=== PATIENT | female | born 1990 | race African-American/Black ===

== ENCOUNTER 2025-05-08 09:47 | Outpatient (REF) | payer OTHER, SELFPAY ==
[2025-05-08 14:44] LABS: Hematocrit 40.8 % (37.0-47.0); Hemoglobin 13.6 g/dl (12.0-16.0); Mean Corpuscular HGB Conc 33.3 g/dl (31.0-35.0); Mean Corpuscular Hemoglobin 29.6 pg (27.0-33.0); Mean Corpuscular Volume 88.7 fL (80.0-98.0); NRBC Abs Auto 0.000 X10*3/uL (0.0-0.012); NRBC Pct Auto 0.0 /100WBC (0.0-0.2); Platelet Count 363 X10*3/uL (160-400); Red Blood Count 4.60 X10*6/uL (4.20-5.50); White Blood Count 6.6 X10*3/uL (4.8-10.8)
[2025-05-08 14:55] LABS: Alanine Aminotransferase 37 U/L (0-31); Albumin Level 4.5 g/dL (3.5-5.0); Alkaline Phosphatase 74 U/L (39-117); Anion Gap 12 (12-20); Aspartate Amino Transferase 31 U/L (5-31); Blood Urea Nitrogen 5 mg/dL (9-16); Calcium 8.8 mg/dL (8.4-10.2); Carbon Dioxide 25 mmol/L (22-29); Chloride 109 mmol/L (96-108); Cholesterol 186 mg/dL (<200); Estimated Glomerular Filt Rate > 60; HDL Cholesterol 38 mg/dL (>40); Iron 51 mcg/dL (30-160); Percent Iron Saturation 16 % (15-50); Potassium 3.7 mmol/L (3.3-5.1); Sodium 142 mmol/L (135-145); Total Iron Binding Capacity 312 mcg/dL (228-428); Total Protein 7.5 g/dL (6.5-8.0); Triglycerides 200 mg/dL (<150); Unsaturated Iron Binding 261 ug/dL
[2025-05-08 15:22] LABS: Folate 11.2 ng/mL (> or = 4.0); Vitamin B12 204 pg/mL (200-900)
== END 2025-05-08 09:48 | disposition home or self-care (01) ==
LOC: HO.WFDLDS 09:47
PROVIDERS: PCP Nurse Practitioner Family; Visit Provider Nurse Practitioner Family
DX: Z00.00 Encounter for general adult medical examination without abnormal findings (principal); Z76.89 Persons encountering health services in other specified circumstances; Z28.21 Immunization not carried out because of patient refusal; I10 Essential (primary) hypertension; E66.9 Obesity, unspecified; F17.210 Nicotine dependence, cigarettes, uncomplicated; Z79.899 Other long term (current) drug therapy; Z92.89 Personal history of other medical treatment; Z97.5 Presence of (intrauterine) contraceptive device; Z68.30 Body mass index [BMI] 30.0-30.9, adult
CPT/HCPCS: 36415; 80053; 80061; 82306; 82607; 82746; 83036; 83540; 84443; 85027; 96127; 99385

== ENCOUNTER 2025-05-08 09:47 | Outpatient (AMB) | payer OTHER, SELFPAY ==
--- NOTE | 2025-05-08 09:49 | A.OFFPC_ITS ---
Vital Signs 05/08/25 09:58 05/08/25 10:33 Height 5 ft 9.5 in Weight 208 lb 4 oz BMI 30.3 BP 165/97 H 138/76 Blood Pressure Location Rt brachial Rt brachial Position Sitting Sitting Respiration 16 Pulse 58 Pulse Source Pulse Oximeter Temp 97.9 F Temp Source Oral Pulse Oximetry (%) 100 Oxygen Delivery Method Room Air Intake Visit Reasons: hypertension/3 months post- Intake Note: patient here for new patient visit/ HTN and 3 month post- Bank Accountant Required: No Is last menstrual period known: Yes Last menstrual period: 05/06/25 Post menopausal: No Patient : No Allergies No Known Allergies Allergy (Verified 05/08/25 09:52) Medication List - Last Reviewed 05/08/25 by OMEGA Kim blood pressure test kit-large As directed nifedipine ER 60 mg PO DAILY polyethylene glycol 3350 17 grams PO DAILY Tobacco use date assessed: 05/08/25 Dental Screening Dental Screen Date: 05/08/25 Did you have a dental visit in the last 12 months?: Yes Did you have a dental problem in the last 6 months where you did not have access to dental care?: No Was dental information given to patient?: Patient has dentist HPI HPI Comments History of Present Illness Details 35 y/o F with HTN, obesity, hx of pre-ec lampsia, current smoker Social: Dtr 5 months old (2024) Surgery: none Fhx: Dad age 50 drug OD; Mom alive HTN sober from etoh/benzo; 2 brother and 2 sisters alive and well. Denies cancer. Some dm in distant relatives. Health Maintenance Tdap 2024 Flu declined 05.08.25 Pap reports 2024 UTD, managed by WIND TUNNEL TECHNICIAN. Specialist: WIND TUNNEL TECHNICIAN Ching Erickson History of Present Illness The patient is a 35-year-old female presenting with complete physical examination and hypertension management. No medical records Essential Hypertension: - onset. - Previously normal during , ex acerbated . - On nifedipine 60mg; no chest pain/SOB; family history positive for hypertension. Obesity: - BMI 30.3; challenges with weight. History of Gestational Hypertension: - Occurred in the last month of pregnanc y. Preeclampsia: - Managed with magnesium sulfate. Nicotine Dependence: - Currently smokes cigarettes. Social History - Family: Has one daughter, five months old. - Smoking: Smokes cigarettes. - Reproductive Health: , five months ago; currently on non-hormonal IUD. Health Maintenance - Tdap received during . - Declined flu shot this year. - Pap smear conducted during , normal results; advised next smear in 2024. - IUD placed ~January 22 . Review of Systems - Cardiovascular: Denies chest pain or s hortness of breath. - Genitourinary: Reports increased cramp ing with IUD, heavy periods. - Respiratory: Denies changes in vision, no visual disturbances. - Constitutional: Reports feeling tired. - Gastrointestinal: Reports no issues wi th bowel movements. Physical Exam General: Well developed, well nourished, in no acute distress. Appears stated age. Head: Normocephalic, atraumatic. Eyes: Pupils are equal, round and reactive to light and accommodation. Conjunctivae are clear. Scleras nonicteric bilat. Vision grossly normal. Ears: TMs clear AU, EACS WNL. Right ear appears slightly irritated; cream prescribed for itching. Nose: Patent, without discharge. Neck: No carotid bruit bilat. Supple, no adenopathy or thyromegaly. Breast: Edu on SBE Lungs: Clear to auscultation bilaterally. No rales, rhonchi or wheeze noted. Good air flow in all garcia. Heart: Regular rate and rhythm. No murmurs, click, rubs or gallops are noted. Abdomen: Bowel sounds present in all quadrants. The abdomen is soft, nontender, with no masses or organomegaly noted. No hernias are noted. : Deferred. Reviewed recommendations for routine WIND TUNNEL TECHNICIAN. Pulses: Peripheral pulses are equal and palpable bilaterally. Extremities: No clubbing, cyanosis nor edema is noted. Patient reported some swelling , but resolved. Neurologic: Gait and station normal. Cranial Nerves 2-12 intact. Motor strength grossly symmetrical and intact. No sensory loss. Balance normal. Skin: No rashes, ulcers, or lesions noted. Turgor is good. Skin color is good. Hair and nails are without abnormalities. Psych: Normal eye contact, affect and mood appropriate, and normal interactions. Patient is alert and appropriate to context. Results Pending Discussion Notes The patient and I discussed her hypertension, exploring the possibility of adjusting her medication routine, particularly given the cessation of and the potential for more effective medications now available. We discussed the importance of regular blood pressure monitoring and the setup of a follow-up appointment to review blood work results and modify her treatment approach if necessary. The potential impact of hypertension on vision was addressed, and a referral to an professor of sport management was made. We also reviewed her current use of a non-hormonal IUD and associated menstrual symptoms, acknowledging that further consultation with her OBGYN might be warranted. The benefits of routine vaccinations and screenings were emphasized, though the patient elected against a flu vaccine this year. Patient was given time to ask questions. All questions were answered to their satisfaction. Assessment and Plan 1. Essential Hypertension - Maintain nifedipine 60mg QD at this ti sc; assess via lab results; ophthalmology referral. - after lab review, will add agent and t itrate to effect, goal to d/c nifedipine 2. Obesity - Monitor; address in future. 3. History of Gestational Hypertension/P ostpartum Preeclampsia - Monitor BP; lab evaluation for kidney function. 4. Nicotine Dependence - Cessation encouraged. 5. IUD/Heavy menses: advised to call icd 9 coder and fu Patient Instructions - Monitor your blood pressure at home an d keep a log to discuss in the next visit. - Check your email to register for the [employer] [facility] and receive updates from sc. - Continue current blood pressure medica tion until further instruction after lab results. - Use cream provided for ear irritation as directed; avoid excessive use. - Schedule a follow-up visit in [facility] to review your blood pressure and lab results. Consent Patient was informed and verbally consented to the use of an ambient scribe for clinic note documentation during this visit. An additional 30 minutes was spent addressing the problem(s) noted at todays visit. This includes time spent before the visit reviewing the chart, time spent during the visit, and time spent after the visit on documentation reviewing laboratory results, diagnostic imaging, medications, performing a medically necessary evaluation, counseling on diagnoses, care coordination, ordering appropriate tests, ordering appropriate medications, review of tests performed by other providers, reporting test results with the patient, communication with other healthcare providers. [facility] Medical History (Updated 05/08/25 @ 10:46 by SHARI hWite) High blood pressure Family History (Updated 05/08/25 @ 10:06 by OMEGA Kim) Mother Alcohol abuse FH: mental illness High blood pressure Maternal Uncle Alcohol abuse Substance abuse Family/Other No problems noted. Paternal Aunt Alcohol abuse FH: mental illness Father Substance abuse Alcohol abuse Maternal Grandmother High blood pressure High cholesterol FH: thyroid disease FH: mental illness Maternal Grandfather Cardiovascular disease FH: mental illness Social History (Updated 05/08/25 @ 09:57 by OMEGA Kim) Housing: Apartment Patient Tobacco Use Status: Current everyday Tobacco user Cigarettes Per Day: 8 e-Cigarette/Vaping Use: Never Used Second Hand Smoke Exposure: No Substance Use Type: Marijuana service: No Current occupational status: employed Current occupation: CONTROL ROOM AGENT Current occupational exposures/hazards: No Cognitive needs: No Hearing needs: No Vision needs: No Female Reproductive History Menstrual Date of last menstrual period: 05/06/25 Questionnaire PHQ-9 Over the last 2 weeks, how often have you been bothered by any of the following problems? 1. Little interest or pleasure in doing things: not at all 2. Feeling down, depressed, or hopeless: not at all 3. Trouble falling or staying asleep, or sleeping too much: not at all 4. Feeling tired or having little energy: not at all 5. Poor appetite or overeating: not at all 6. Feeling bad about yourself - or that you are a failure or have let yourself or your family down: not at all 7. Trouble concentrating on things, such as reading the newspaper or watching television: not at all 8. Moving or speaking so slowly that other people could have noticed. Or the opposite - being so fidgety or restless that you have been moving around a lot more than usual: not at all 9. Thoughts that you would be better off or of hurting yourself in some way: not at all Total score: 0 Depression Screening Interpretation: Negative Depression Screening Done: Yes 28003 - PHQ-9 Billing: Yes Source: Developed by Drs. Vipul Ferrer, Marion Maurice, Cr Salazar and colleagues, with an educational lyndon from [employer]. Thrive Questionnaire Date Thrive assessed: 05/08/25 I am a: Patient What is your living situation today?: I have a steady place to live Within the past 12 months, did the food you bought not last and you didn't have the money to get more?: Never true Within the past 12 months, did you worry whether your food would run out before you got money to buy more?: Never true Do you have trouble paying for medicines?: No Do you have trouble getting transportation to medical appointments?: No Do you have trouble paying your heating and electricity bill?: No Do you have trouble taking care of your child, family member or friend?: No Do you have trouble with day-to-day activities such as bathing, preparing meals, shopping, managing finances, etc.?: No Are you currently unemployed and looking for a job?: No Are you interested in more education?: No Please select the resources that you would like help with: None Currently or been in a relationship where the following occur: No concerns reported THRIVE Score: 0 AUDIT C Alcohol Use Questionnaire (AUDIT-C) 1. How often do you have a drink containing alcohol?: Monthly or less 2. How many drinks containing alcohol do you have on a typical day when you are drinking?: 3 or 4 3. How often do you have six or more drinks on one occasion?: Never Total Score: 2 Score Reviewed/Action Taken: Yes RASHAWN-7 AMB Questionnaire RASHAWN-7 Date RASHAWN - 7 assessed: 05/08/25 Feeling nervous, anxious, or on edge: 0 = Not at all Not being able to stop or control worryin = Not at all Worrying too much about different things: 0 = Not at all Trouble relaxin = Not at all Being so restless that it is hard to sit still: 0 = Not at all Becoming easily annoyed or irritable: 0 = Not at all Feeling afraid as if something awful might happen: 0 = Not at all Total RASHAWN-7 score (0-4 normal; 5-9 mild; 10-14 moderate; 15-21 severe): 0 Source: Developed by Drs. Vipul Ferrer, Marion Maurice, Cr Salazar and colleagues, with an educational lyndon from [employer]. RASHAWN-7 Assessment Billing RASHAWN-7 Assessment Tool: RASHAWN-7 Assessment 75737 Physical exam (Primary Care) Vital Signs: Last Vital Signs Temp 97.9 F 05/08/25 09:58 Pulse 58 05/08/25 09:58 Resp 16 05/08/25 09:58 BP 165/97 H 05/08/25 09:58 Pulse Ox 100 05/08/25 09:58 Oxygen Delivery Method Room Air 05/08/25 09:58 BMI result Body Mass Index 30.3 BMI Assessment/Plan discussion: High BMI High, discussed plan: lifestyle Tobacco/Smoking Status: Tobacco use Status Tobacco use date assessed 05/08/25 05/08/25 09:57 Patient Tobacco Use Status Current everyday Tobacco 05/08/25 09:57 e-Cigarette/Vaping Use Never Used 05/08/25 09:57 PHQ-9: PHQ-9 Score PHQ-9: Total score 0 05/08/25 09:57 Depression Screening Interpretation: Negative Thrive Assessment: Date of Thrive Assessment Date Thrive assessed 05/08/25 05/08/25 09:57 Currently or been in a relationship where the following occur: No concerns reported Coding Level of Care Code New Pt Level 3 (21271) New Pt Prev Care 18-39yr(38369 Diagnoses Encounter to establish care Z76.89 Obesity (BMI 30-39.9) E66.9 Encounter for general adult medical examination without abnormal findings Z00.00 Laboratory exam ordered as part of routine general medical examination Z00.00 High blood pressure I10 History of Papanicolaou smear of cervix Z92.89 IUD (intrauterine device) in place Z97.5 Current smoker F17.200 Influenza vaccination declined Z28.21 Additional Codes RASHAWN-7 Assessment Billing - RASHAWN-7 Assessment Tool: RASHAWN-7 Assessment 59928 ([id number]) PHQ-9 - 73217 - PHQ-9 Billing: Yes ([id number]) Assessment & Plan Assessment & Plan (1) Encounter to establish care: Code(s): Z76.89 - Persons encountering health services in other specified circumstances (2) Obesity (BMI 30-39.9): Code(s): E66.9 - Obesity, unspecified Category: Medical (3) Encounter for general adult medical examination without abnormal findings: Onset Date: ~05/08/25 Code(s): Z00.00 - Encounter for general adult medical examination without abnormal findings Category: Medical (4) Laboratory exam ordered as part of routine general medical examination: Code(s): Z00.00 - Encounter for general adult medical examination without abnormal findings Category: Medical (5) High blood pressure: Code(s): I10 - Essential (primary) hypertension Category: Medical (6) History of Papanicolaou smear of cervix: Onset Date: ~2024 Code(s): Z92.89 - Personal history of other medical treatment Category: Medical (7) IUD (intrauterine device) in place: Onset Date: ~01/2025 Comment: [facility]ing womens Code(s): Z97.5 - Presence of (intrauterine) contraceptive device Category: Social Hx (8) Current smoker: Comment: Smoking Cessation How to Quit There are a lot of ways to quit smoking and many resources to help you. Family members, friends, and co-workers may be supportive or encouraging, but to be successful the desire and commitment to quit must be your own. Most people who have been able to successfully quit smoking made at least one unsuccessful attempt in the past. Try not to view past attempts to quit as failures, but rather as learning experiences. Stopping smoking or using smokeless tobacco is difficult, but anyone can do it. Know the symptoms to expect when you stop. Common symptoms include: ? An intense craving for nicotine ? Anxiety, tension, restlessness, frustration, or impatience ? Difficulty concentrating ? Drowsiness or trouble sleeping, as well as bad dreams and nightmares ? Drowsiness and trouble sleeping ? Headaches ? Increased appetite and weight gain ? Irritability or depression How severe your symptoms are depends on how long you smoked and how many cigarettes you smoked each day. Feel ready to quit? ? First and foremost, set a quit date and quit completely on that day. Before your quit date, you may begin reducing your cigarette use. But remember, there is no safe level of cigarette smoking. ? List the reasons why you want to quit. Include both short- and long-term benefits. ? Identify the times you are most likely to smoke. For example, do you tend to smoke when feeling stressed or down? When out at night with friends? While drinking coffee or alcohol? When bored? While driving? Right after a meal or sex? During a work break? While watching TV or playing cards? When you are with other smokers? ? Let all of your friends, family, and co-workers know of your plan to stop smoking and your quit date. Just being aware that they know what you're going through can be helpful, especially when you are grumpy. ? Get rid of all your cigarettes just before the quit date, and clean out anything that smells like smoke, such as clothes and furniture. Make a plan about what you will do instead of smoking at those times when you are most likely to smoke. ? Be as specific as possible. For example, drink tea instead of coffee -- tea may not trigger the desire for a cigarette. Or, take a walk when you feel stressed. ? Remove ashtrays and cigarettes from the car. Place pretzels or hard candies there instead. Pretend-smoke with a straw. ? Find activities that focus your hands and mind but are not taxing or fattening. Computer games, solitaire, knitting, sewing, and crossword puzzles may help. ? If you normally smoke after eating, find other ways to end a meal. Play a tape or CD, eat a piece of fruit, get up and make a phone call, or take a walk (a good distraction that also gaitan calories). Make other changes in your lifestyle. ? Change your daily schedule and habits. Eat at different times or eat several small meals instead of three large ones. Sit in a different chair or even a different room. ? Satisfy your oral habits by eating celery or other low-calorie snack, chewing sugarless gum, or sucking on a cinnamon stick. ? Go to public places and restaurants where smoking is prohibited or restricted. ? Eat regular meals and don't eat too much candy or sweet things. ? Get more exercise. Take walks or ride a bike. Exercise helps relieve the urge to smoke. Set short-term quitting goals and reward yourself when you meet them. ? Every day, put the money you normally spend on cigarettes in a jar. Then buy something pleasurable after a period of time. ? Try not to think about all the days ahead you will need to avoid smoking. Take it one day at a time. ? Even one puff or one cigarette will make your desire for more cigarettes even stronger. However, it is normal to make mistakes. So even if you have one cigarette, you don't need to take the next one. Other tips to help you quit smoking and stick to it: ? Enroll in a smoking cessation program (hospitals, health departments, community centers, and work sites often offer programs). Learn about self-hypnosis or other techniques. ? Ask your health care provider about prescription medications that are safe and appropriate for you. ? Find out about nicotine patches, gum, and sprays. The [employer]'s web site -- www.cancer.org -- is an excellent resource for smokers who are trying to quit, and the [employer] [place] [employer] can help some smokers kick the habit. Above all, don't get discouraged if you aren't able to quit smoking the first time. Nicotine addiction is a hard habit to break. Try something different next time. Develop new strategies, and try again. Many people take several attempts to finally kick the habit. Code(s): F17.200 - Nicotine dependence, unspecified, uncomplicated Category: Social Hx (9) Influenza vaccination declined: Onset Date: ~05/08/25 Code(s): Z28.21 - Immunization not carried out because of patient refusal Category: Medical Plan . Orders: Orders Hemoglobin A1c Today I10 - Essential (primary) hypertension, Z00.00 - Encounter for general adult medical examination without abnormal findings TSH reflex Free T4 Today I10 - Essential (primary) hypertension, Z00.00 - Encounter for general adult medical examination without abnormal findings Complete Blood Count no Diff Today I10 - Essential (primary) hypertension, Z00.00 - Encounter for general adult medical examination without abnormal findings Comprehensive Met. Panel Today I10 - Essential (primary) hypertension, Z00.00 - Encounter for general adult medical examination without abnormal findings Lipid Panel Today I10 - Essential (primary) hypertension, Z00.00 - Encounter for general adult medical examination without abnormal findings Microalbumin, Random (w Creat) Today I10 - Essential (primary) hypertension, Z00.00 - Encounter for general adult medical examination without abnormal findings Vitamin B12 and Folate Today I10 - Essential (primary) hypertension, Z00.00 - Encounter for general adult medical examination without abnormal findings Vitamin D 25-OH Total Today I10 - Essential (primary) hypertension, Z00.00 - Encounter for general adult medical examination without abnormal findings IRON PROFILE Today I10 - Essential (primary) hypertension, Z00.00 - Encounter for general adult medical examination without abnormal findings Referrals Optometry Referral H53.8 - Other visual disturbances Patient Instructions: Walk-In Care (Urgent Care): We Make it Easy Walk-in for urgent medical issues such as: ? Seasonal Allergies ? Insect Bites ? Cough ? Diarrhea ? Acute Asthma Attacks ? Back, Knee or Joint Pain ? Ear Infection ? Fever without a Rash ? Headaches ? Nausea ? [place] [facility], Rash or Skin Irritation ? Sore Throat ? Sports Physicals ? Vomiting Most insurances are accepted. Patients do not need to be part of the [facility] to seek care at the walk-in clinic. Locations [address] [place] [address] Open Monday through Monday 8am-5pm *Hours may vary due to staffing availability. To confirm Walk-In Care hours please call. [address] [facility] , [place] [address] ? [phone] [facility] Walk-In Care in [place] provides services to ages 18 and over. Open Monday-Monday: 7 a.m. to 5 p.m. and Monday: 9 a.m. to 3 p.m.* *Hours may vary due to staffing availability. To confirm Walk-In Care hours in [place], please call [phone]. [address] [place] [address] ? [phone] [facility] Walk-In Care in [place] provides services to ages 12 and over. Open Monday-Monday: 8 a.m. to 5 p.m. Hours may vary due to staffing availability. To confirm Walk-In Care hours in [place], please call [phone]. LABORATORY SERVICES: [facility] Lab ? Primary Location [address] [place] [address] Monday through Monday 6:00 AM ? 5:00 PM Monday 7:00 AM ? 11:00 AM* [phone] The [facility] Lab is centrally located near the front entrance of the [facility] for easy outpatient access. Convenient parking is provided for outpatients. *Hours may vary due to staffing availability. To confirm Laboratory hours for any location, please call [phone]. Offsite Location For your convenience, we offer offsite laboratory draw stations at the following locations: [address] [place] [address] ? [facility] [address], [address] Monday through Monday 7:30 AM ? 1:00 PM* [phone] *Hours may vary due to staffing availability. To confirm Laboratory hours for any location, please call [phone]. [place] ? Deb Covarr[address] Monday through Monday 6:00 AM ? 3:30 PM* Monday 6:30 AM ? 3 PM* [phone] *Hours may vary due to staffing availability. To confirm Laboratory hours for any location, please call [phone]. [address] [facility] Monday through Monday 7:30 AM ? 4:00 PM* [phone] *Hours may vary due to staffing availability. To confirm Laboratory hours for any location, please call [phone]. [address] [facility] Monday through 9:00 AM ? 4:00 PM* *Hours may vary due to staffing availability. To confirm Laboratory hours for any location, please call [phone]. Appointments are not necessary. Walk-ins are welcome. Like all the departments throughout the [facility], our Lab undergoes frequent reviews to ensure the quality and accuracy of test results, and our staff takes special pride in its status as a nationally accredited facility. Patient Portal: [facility] ONE PATIENT. ONE RECORD. BETTER CARE. [facility] has a fully integrated, cutting- edge mobile electronic health information system that has revolutionized the way we care for our patients and manage our organization. This system improves communication and coordination enabling us to provide safe, higher-quality care, and an overall positive experience for staff and patients. Our first priority, as always, is to deliver the highest quality care possible. The system is running in the background supporting that priority. This portal is for all [facility] services and practices. If you are experiencing any technical difficulties with enrolling or logging into the Patient Portal please complete the [facility] Patient Portal Technical Support Form. [facility] and [facility] now offers a new secure on-line interactive tool for patients to review their health information ? ?Patient Portal. This interactive web portal will enable patients and their families to take an active role in their care by providing easy, secure access to their health information via the internet. The Patient Portal provides patients with instant access to their health information, including laboratory results, medications, allergies, demographic information, visit history, and more. In addition to managing their own care, parents and health care proxies with authorized consent will appreciate the ability to access the records of those individuals for whom they provide care. Please note: if you wish to gain access (Proxy) to another patient?s portal, you will be required to come to the Medical Records Department in person at [facility]. Both the patient giving proxy access and the proxy will need to provide photo identification and complete the appropriate authorization. The Patient Portal also allows track their appointments online. The [facility] Patient Portal also saves patients time by allowing them to submit updates to their demographic and contact information prior to their visits. Portal email notifications will also alert patients to any new activity on their portal, such as test results and new appointments. In order to initially enroll in the [facility] Patient Portal, you will need to enter some required information including the following: * your [facility] Medical Record number * your personal home email address * name * date of Please note: In order to enroll in the [facility] Patient Portal, we need to have your email address on file in your electronic medical record. ?The email address needs to be specific for one person (yourself) in order for your Portal enrollment to be successful. ?You can update your email address in person with our Registration staff when you are registering for a hospital visit. ?Otherwise, you will need to come to the Health Information Management (Medical Records) Department at [facility]. ?We are open from Monday ? Monday from 7:30 a.m. ? 4:30 p.m. ?You will be required to present a photo id. Once you have successfully enrolled in the Patient Portal, you will receive a one-time user id and password for the Portal, sent to your email address. ?This will allow you to log into the Patient Portal within 99 hrs and reset your own logon id and password, and define personal security questions. ?Once your permanent login and password have been set, you can log into the [facility] Patient Portal at any time via the blue button above or from the Portal Logon button on any page of the [facility] website. [facility] and [facility] encourage all of our patients to enroll in Patient Portal as it presents a valuable opportunity for patients and their families to actively participate in their care and stay healthy Welcome to [facility]. ?We look forward to working with you. Health screenings for women You should visit your health care provider from time to time, even if you are healthy. The purpose of these visits is to: Screen for medical issues Assess your risk for future medical problems Encourage a healthy lifestyle Update vaccinations and other preventive care services Help you get to know your provider in case of an illness Information Even if you feel fine, you should still see your provider for regular checkups. These visits can help you avoid problems in the future. For example, the only way to find out if you have high blood pressure is to have it checked regularly. High blood sugar and high cholesterol levels also may not have any symptoms in the early stages. A simple blood test can check for these conditions. There are specific times when you should see your provider or receive specific health screenings. The [place] Preventive Services Task Force publishes a list of recommended screenings. Below are screening guidelines for women ages 18 to 39. BLOOD PRESSURE SCREENING Your blood pressure should be checked at least once every 3 to 5 years if: Your blood pressure is in the normal range (top number less than 120 mm Hg and bottom number less than 80 mm Hg) You don't have risk factors for high blood pressure Ask your provider if you need your blood pressure checked more often if: The top number is 120 to 129 mm Hg or the bottom number is 70 to 79 mm Hg You have diabetes, heart disease, kidney problems, are overweight, or have certain other health conditions You have a first-degree relative with high blood pressure You are Black You had high blood pressure during a If the top number is 130 mm Hg or greater or the bottom number is 80 mm Hg or greater, this is considered stage 1 hypertension. Schedule an appointment with your provider to learn how you can reduce your blood pressure. Watch for blood pressure screenings in your area. Ask your provider if you can stop in to have your blood pressure checked. BREAST CANCER SCREENING Experts do not agree about the benefits of breast self-exams in finding breast cancer or saving lives. Talk to your provider about what is best for you. A screening mammogram is not recommended for most women under age 40. Your provider may discuss and recommend mammograms, MRI scans, or ultrasounds if you have an increased risk for breast cancer, such as: A mother or sister who had breast cancer at a young age (most often starting screening earlier than the age the close relative was diagnosed) You carry a high-risk genetic marker CERVICAL CANCER SCREENING Cervical cancer screening should start at age 21 years unless your provider advises otherwise. After the first test: Women ages 21 through 29 should have a Pap test every 3 years. Exoprts do not agree on whether HPV testing is recommended for this age group. Women ages 30 through 65 should be screened with either a Pap test every 3 years or the HPV test every 5 years or both tests every 5 years (called cotesting ). Women who have been treated for precancer (cervical dysplasia) should continue to have Pap tests for 20 years after treatment or until age 65, whichever is longer. If you have had your uterus and cervix removed (total hysterectomy), and you have not been diagnosed with cervical cancer or precancer (high grade cervical neoplasia), you do not need cervical cancer screening. CHOLESTEROL SCREENING Cholesterol screening should begin at: Age 45 for women with no known risk factors for coronary heart disease Age 20 for women with known risk factors for coronary heart disease Repeat cholesterol screening should take place: Every 5 years for women with normal cholesterol levels More often if changes occur in lifestyle (including weight gain and diet) More often if you have diabetes, heart disease, kidney problems, or certain other conditions DIABETES SCREENING You should be screened for diabetes starting at age 35 and then repeated every 3 years if you have no risk factors for diabetes. Screening may need to start earlier and be repeated more often if you have other risk factors for diabetes, such as: You have a first degree relative with diabetes. You are overweight or have obesity. You have high blood pressure, prediabetes, or a history of heart disease. Screening for diabetes should be done if you are planning to become and you are overweight and have other risk factors such as high blood pressure. DENTAL EXAM Go to the dentist once or twice every year for an exam and cleaning. Your dentist will evaluate if you need more frequent visits. EYE EXAM Have an eye exam every 5 to 10 years before age 40. If you have vision problems, have an eye exam every 2 years or more often if recommended by your provider. You should have an eye exam that includes an examination of your retina (back of your eye) at least every year if you have diabetes. IMMUNIZATIONS Commonly needed vaccines include: Flu shot: get one every year. COVID-19 vaccine: ask your provider what is best for you. Tetanus-diphtheria and acellular pertussis (Tdap) vaccine: have one at or after age 19 as one of your tetanus-diphtheria vaccines if you did not receive it as an adolescent. Tetanus-diphtheria: have a booster (or Tdap) every 10 years. Varicella vaccine: receive 2 doses if you never had chickenpox or the varicella vaccine. Hepatitis B vaccine: receive 2, 3, or 4 doses, depending on your exact circumstances. Measles, mumps, and rubella (MMR) vaccine: receive 1 to 2 doses if you are not already immune to MMR. Your provider can tell you if you are immune. Ask your provider about the human papillomavirus (HPV) vaccine if: You have not received the HPV vaccine in the past You have not completed the full vaccine series (you should catch up on this shot) Ask your provider if you should receive other immunizations if you have certain health problems that increase your risk for some diseases such as pneumonia. INFECTIOUS DISEASE SCREENING Women who are sexually active should be screened for chlamydia and gonorrhea up until age 25. Women 25 years and older should be screened for chlamydia and gonorrhea if at high risk. Screening for hepatitis C: All adults ages 18 to 79 should get a one-time test for hepatitis C. people should be screened at every . Screening for human immunodeficiency virus (HIV): All people ages 15 to 65 should get a one-time test for HIV. Depending on your lifestyle and medical history, you may also need to be screened for infections such as syphilis and HIV, as well as other infections. PHYSICAL EXAM All adults should visit their provider from time to time, even if they are healthy. The purpose of these visits is to: Screen for disease Assess your risk of future medical problems Encourage a healthy lifestyle Update your vaccinations and other preventive care services Maintain a relationship with a provider in case of an illness Your height, weight, and BMI should be checked at every exam. During your exam, your provider may ask you about: Depression and anxiety Diet and exercise Alcohol and tobacco use Safety issues, such as using seat belts, smoke detectors, and intimate partner violence Your medicines and risk for interactions SKIN SELF-EXAM Your provider may check your skin for signs of skin cancer, especially if you're at high risk, such as if you: Have had skin cancer before Have close relatives with skin cancer Have a weakened immune system OTHER SCREENING Talk with your provider about colon cancer screening if you have a strong family history of colon cancer or polyps, or if you have had inflammatory bowel disease or polyps yourself. Routine bone density screening of women under 40 is not recommended.
[2025-05-08 09:58] VITALS: BP 165/97; PULSE 58; RESP 16; TEMP 36.6; O2SAT 100; BMI 30.3
[2025-05-08 10:33] VITALS: BP 138/76
== END 2025-05-08 10:40 | disposition home or self-care (01) ==
LOC: HO.HMCFM 09:48
PROVIDERS: PCP Nurse Practitioner Family; Visit Provider Nurse Practitioner Family
DX: Z00.00 Encounter for general adult medical examination without abnormal findings (principal); I10 Essential (primary) hypertension; E66.9 Obesity, unspecified; Z68.30 Body mass index [BMI] 30.0-30.9, adult; Z92.89 Personal history of other medical treatment; Z97.5 Presence of (intrauterine) contraceptive device; F17.200 Nicotine dependence, unspecified, uncomplicated; Z28.21 Immunization not carried out because of patient refusal

== ENCOUNTER 2025-06-09 11:21 | Outpatient (AMB) | payer OTHER, SELFPAY ==
--- NOTE | 2025-06-09 11:23 | A.OFFPC_ITS ---
Vital Signs 06/09/25 11:27 06/09/25 11:53 Height 5 ft 9.5 in Weight 206 lb 8 oz BMI 30.1 BP 140/76 H 146/76 H Blood Pressure Location Rt brachial Lt brachial Position Sitting Sitting Respiration 13 Pulse 50 Pulse Source Pulse Oximeter Temp 97.6 F Temp Source Oral Pulse Oximetry (%) 99 Oxygen Delivery Method Room Air Intake Visit Reasons: 4 weeks fu labs/HTN 30 min Intake Note: Follow up on htn and review labs. Patient was wondering if we are able to remove her iud. Transmission Specialist Required: No Allergies No Known Allergies Allergy (Verified 06/09/25 11:46) Medication List - Last Reconciled 06/09/25 by Crystal Villalobos, [facility] blood pressure test kit-large As directed lisinopril 5 mg PO DAILY nifedipine ER 60 mg PO DAILY polyethylene glycol 3350 17 grams PO DAILY Tobacco use date assessed: 06/09/25 Dental Screening Dental Screen Date: 06/09/25 Did you have a dental visit in the last 12 months?: Yes Did you have a dental problem in the last 6 months where you did not have access to dental care?: No Was dental information given to patient?: Patient has dentist HPI HPI Comments History of Present Illness Details 35 y/o F with HTN, obesity, hx of pre-ec lampsia, current smoke, vit d def Social: Dtr 5 months old (2024) Surgery: none Fhx: Dad age 50 drug OD; Mom alive HTN sober from etoh/benzo; 2 brother and 2 sisters alive and well. Denies cancer. Some dm in distant relatives. Health Maintenance Tdap 2024 Flu declined 05.08.25 Pap reports 2024 UTD, managed by [employer]. [facility] WNL History of Present Illness The patient is a 35 year old individual presenting for a 4-week follow-up of hypertension. Essential Hypertension: - The patient is at a 4-week follow-up f or hypertension, currently taking nifedipine ER 60 mg daily. - At the last visit, lisinopril 5 mg was added, but the patient did not start the medication due to anxiety about potential side effects, specifically cough and swelling. - The patient monitors blood pressure at home and reported one recent reading of 160s/90 mmHg, which later decreased. - A recent eye exam for hypertension-rel ated damage showed minuscule to no damage, and glasses were not needed. Tobacco Use Disorder: - The patient is a current smoker. - The patient attempted to quit a week a nd a half ago but was unsuccessful. - The patient is considering using a pat ch or gum for smoking cessation. Vitamin D Deficiency: - Recent lab work revealed a vitamin D d eficiency. - The patient has started taking a multi vitamin in response to the findings. Complication of intrauterine contraceptive device: - The patient has an IUD and reports exp eriencing random cramps. - The patient wishes to have the IUD rem nadeen but was unable to get an appointment with a specialist until August. Past Medical History - Hypertension - Current tobacco smoker - Vitamin D deficiency - Anxiety regarding medication side effe cts - Has an intrauterine device (IUD) Review of Systems - Cardiovascular: Denies chest pain. - Respiratory: Denies shortness of breat h. - Musculoskeletal: Denies swelling in th e ankles. - Genitourinary: Reports experiencing ra ndom cramps, which the patient attributes to an IUD. Physical Exam General: Well developed, well nourished, in no acute distress. Appears stated age. Head: Normocephalic, atraumatic. Eyes: Pupils are equal, round and reactive to light and accommodation. Conjunctivae are clear. Lungs: Clear to auscultation bilaterally. No rales, rhonchi or wheeze noted. Good air flow in all garcia. Heart: Regular rate and rhythm. No murmurs, click, rubs or gallops are noted. Musculoskeletal: Joints are nontender, without swelling, redness, or effusions. Pulses: Peripheral pulses are equal and palpable bilaterally. Extremities: No clubbing, cyanosis nor edema is noted. Psych: Mood and affect appropriate. Reports anxiety related to medication side effects. Results - Labs: Recent laboratory results were r eviewed and noted to be good, with the exception of a vitamin D deficiency. - Ophthalmology exam: A recent eye exam at [facility] revealed minuscule to no damage from hypertension, and the patient does not require glasses. Medical Decision Making The patient is a 35-year-old individual here for a 4-week hypertension follow- up. Despite being on nifedipine ER 60 mg, the patient's blood pressure remains elevated at 146/76 mmHg. The patient did not initiate the prescribed lisinopril 5 mg due to anxiety about potential side effects, namely cough and angioedema. I have reiterated the clinical plan to add lisinopril, emphasizing its benefits for blood pressure control and renal protection, and provided education on the rarity of severe side effects. The patient has agreed to start the lisinopril, and we will continue the nifedipine for now. The goal is to optimize the lisinopril and eventually discontinue the nifedipine. We also addressed the patient's tobacco use. Given the patient's interest in pharmacotherapy and the preference for addressing the pwnf-ze-muuwq habit, Nicorette gum has been prescribed with instructions for proper use. The patient's vitamin D deficiency is being appropriately managed with a multivitamin, and we will monitor levels annually. Regarding the patient's request for IUD removal due to cramps, I have provided referrals to walk-in women's health clinics as an alternative to the long wait for a specialist appointment. Plan 1. Essential Hypertension - The patient has agreed to start lisino pril 5 mg daily in addition to the current nifedipine ER 60 mg daily. - Provided education on the risks and be nefits of lisinopril, including the rare risk of angioedema and the more common side effect of a cough. - Instructed the patient to stop the med ication immediately if swelling occurs and to message if a cough develops. - A 90-day refill of nifedipine was pres cribed. - The patient will continue monitoring b lood pressure at home. - Plan to follow up in 4 weeks to assess blood pressure response. 2. Tobacco Use Disorder - Prescribed Nicorette gum to aid in smo judith cessation. - Counseled on the proper technique for using nicotine gum and advised a gradual reduction approach. - Will follow up on smoking cessation pr ogress at the next visit in 4 weeks. 3. Vitamin D Deficiency - The patient is taking a multivitamin t o address the deficiency. - Will repeat vitamin D levels annually to monitor. 4. Complication Of Intrauterine Contrace ptive Device - The patient reports random cramps and desires IUD removal. - Advised the patient to seek care at a walk-in women's health clinic like [facility], a women's health clinic, or [facility] for potentially quicker IUD removal, as this is not performed in this office and the specialist's waitlist is long. Patient Instructions - Start taking lisinopril 5 mg every day with your morning pills. - Continue taking your nifedipine 60 mg daily. I have sent a 3-month refill for this. - If you develop a cough from the lisino pril, send a message through the portal. - If you notice any swelling of your lip s or face, stop taking lisinopril right away. You only need to go to the emergency room if you have trouble breathing. - Continue checking your blood pressure at home. - Use the prescribed Nicorette gum to he lp you quit smoking. Follow the package instructions on how to use it correctly. - Continue taking your daily multivitami n. - For your IUD removal, you can try mary alice g to a walk-in women's health clinic like [facility] or [facility] to be seen sooner. - Please return for a follow-up visit in about 4 weeks. Consent The risks, benefits, and alternatives of initiating lisinopril were discussed with the patient. It was explained that the benefits include improved blood pressure control and kidney protection. Potential side effects were reviewed, including a aph-uzdm-xwdpqzpkmma cough and a very rare (less than 1% of the population) risk of swelling, or angioedema. The patient was instructed to stop the medication immediately if swelling occurs and to seek emergency care only if there is difficulty breathing. The patient demonstrated understanding of the instructions and agreed to proceed with starting the medication. Patient was informed and verbally consented to the use of an ambient scribe for clinic note documentation during this visit. Total time spent caring for the patient today was 30 minutes. This includes time spent before the visit reviewing the chart, time spent during the visit, and time spent after the visit on documentation, reviewing laboratory results, diagnostic imaging, medications, performing a medically necessary evaluation, counseling on diagnoses, care coordination, ordering appropriate tests, ordering appropriate medications, review of tests performed by other providers, reporting test results with the patient, communication with other healthcare providers. [facility] Medical History (Updated 06/09/25 @ 12:02 by MAICO White) High blood pressure Family History (Updated 05/08/25 @ 10:06 by OMEGA Kim) Mother Alcohol abuse FH: mental illness High blood pressure Maternal Uncle Alcohol abuse Substance abuse Family/Other No problems noted. 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 Current occupational exposures/hazards: No Cognitive needs: No Hearing needs: No Vision needs: No Questionnaire Thrive Questionnaire Date Thrive assessed: 05/05/25 I am a: Patient What is your living situation today?: I have a steady place to live Within the past 12 months, did the food you bought not last and you didn't have the money to get more?: Never true Within the past 12 months, did you worry whether your food would run out before you got money to buy more?: Never true Do you have trouble paying for medicines?: No Do you have trouble getting transportation to medical appointments?: No Do you have trouble paying your heating and electricity bill?: No Do you have trouble taking care of your child, family member or friend?: No Do you have trouble with day-to-day activities such as bathing, preparing meals, shopping, managing finances, etc.?: No Are you currently unemployed and looking for a job?: No Are you interested in more education?: No Please select the resources that you would like help with: None Currently or been in a relationship where the following occur: No concerns reported THRIVE Score: 0 RASHAWN-7 AMB Questionnaire RASHAWN-7 Date RASHAWN - 7 assessed: 05/08/25 Source: Developed by Drs. Vipul Ferrer, Marion Maurice, Cr Salazar and colleagues, with an educational lyndon from [employer]. Physical exam (Primary Care) Vital Signs: Last Vital Signs Temp 97.6 F 06/09/25 11:27 Pulse 50 06/09/25 11:27 Resp 13 06/09/25 11:27 BP 146/76 H 06/09/25 11:53 Pulse Ox 99 06/09/25 11:27 Oxygen Delivery Method Room Air 06/09/25 11:27 BMI result Body Mass Index 30.1 Tobacco/Smoking Status: Tobacco use Status Tobacco use date assessed 06/09/25 06/09/25 11:29 Patient Tobacco Use Status Current everyday Tobacco 06/09/25 11:24 e-Cigarette/Vaping Use Never Used 06/09/25 11:24 Are you ready to quit: Yes Tobacco cessation counseling provided: Yes Items discussed: Nicotine replacement, Quit[employer] and Other Relapse Prevention: discussed the importance of a supportive environment, discussed extending NRT, discussed negative mood or depression after quitting, weight gain after smoking is common and discussed dietary, exercise and/or lifestyle changes Number of minutes spent counselin CPT code: 34272 - 4-10 Minutes Thrive Assessment: Date of Thrive Assessment Date Thrive assessed 05/05/25 06/09/25 11:24 Currently or been in a relationship where the following occur: No concerns reported Coding Level of Care Code Est Pt Level 4 (10481) Complex visit Add On G2211 Diagnoses Primary hypertension I10 Hypertension type: primary hypertension Vitamin D deficiency E55.9 IUD (intrauterine device) in place Z97.5 Current smoker F17.200 Additional Codes Vital Signs *Quality* - CPT code: 44296 - 4-10 Minutes ([id number]) Assessment & Plan Assessment & Plan (1) High blood pressure: Code(s): I10 - Essential (primary) hypertension Category: Medical Qualifiers: Hypertension type: primary hypertension Qualified Code(s): I10 - Essential (primary) hypertension (2) Vitamin D deficiency: Code(s): E55.9 - Vitamin D deficiency, unspecified Category: Medical (3) IUD (intrauterine device) in place: Onset Date: ~01/2025 [facility] Code(s): Z97.5 - Presence of (intrauterine) contraceptive device Category: Medical (4) Current smoker: Comment: Smoking Cessation How to Quit There are a lot of ways to quit smoking and many resources to help you. Family members, friends, and co-workers may be supportive or encouraging, but to be successful the desire and commitment to quit must be your own. Most people who have been able to successfully quit smoking made at least one unsuccessful attempt in the past. Try not to view past attempts to quit as failures, but rather as learning experiences. Stopping smoking or using smokeless tobacco is difficult, but anyone can do it. Know the symptoms to expect when you stop. Common symptoms include: ? An intense craving for nicotine ? Anxiety, tension, restlessness, frustration, or impatience ? Difficulty concentrating ? Drowsiness or trouble sleeping, as well as bad dreams and nightmares ? Drowsiness and trouble sleeping ? Headaches ? Increased appetite and weight gain ? Irritability or depression How severe your symptoms are depends on how long you smoked and how many cigarettes you smoked each day. Feel ready to quit? ? First and foremost, set a quit date and quit completely on that day. Before your quit date, you may begin reducing your cigarette use. But remember, there is no safe level of cigarette smoking. ? List the reasons why you want to quit. Include both short- and long-term benefits. ? Identify the times you are most likely to smoke. For example, do you tend to smoke when feeling stressed or down? When out at night with friends? While drinking coffee or alcohol? When bored? While driving? Right after a meal or sex? During a work break? While watching TV or playing cards? When you are with other smokers? ? Let all of your friends, family, and co-workers know of your plan to stop smoking and your quit date. Just being aware that they know what you're going through can be helpful, especially when you are grumpy. ? Get rid of all your cigarettes just before the quit date, and clean out anything that smells like smoke, such as clothes and furniture. Make a plan about what you will do instead of smoking at those times when you are most likely to smoke. ? Be as specific as possible. For example, drink tea instead of coffee -- tea may not trigger the desire for a cigarette. Or, take a walk when you feel stressed. ? Remove ashtrays and cigarettes from the car. Place pretzels or hard candies there instead. Pretend-smoke with a straw. ? Find activities that focus your hands and mind but are not taxing or fattening. Computer games, solitaire, knitting, sewing, and crossword puzzles may help. ? If you normally smoke after eating, find other ways to end a meal. Play a tape or CD, eat a piece of fruit, get up and make a phone call, or take a walk (a good distraction that also gaitan calories). Make other changes in your lifestyle. ? Change your daily schedule and habits. Eat at different times or eat several small meals instead of three large ones. Sit in a different chair or even a different room. ? Satisfy your oral habits by eating celery or other low-calorie snack, chewing sugarless gum, or sucking on a cinnamon stick. ? Go to public places and restaurants where smoking is prohibited or restricted. ? Eat regular meals and don't eat too much candy or sweet things. ? Get more exercise. Take walks or ride a bike. Exercise helps relieve the urge to smoke. Set short-term quitting goals and reward yourself when you meet them. ? Every day, put the money you normally spend on cigarettes in a jar. Then buy something pleasurable after a period of time. ? Try not to think about all the days ahead you will need to avoid smoking. Take it one day at a time. ? Even one puff or one cigarette will make your desire for more cigarettes even stronger. However, it is normal to make mistakes. So even if you have one cigarette, you don't need to take the next one. Other tips to help you quit smoking and stick to it: ? Enroll in a smoking cessation program (hospitals, health departments, community centers, and work sites often offer programs). Learn about self-hypnosis or other techniques. ? Ask your health care provider about prescription medications that are safe and appropriate for you. ? Find out about nicotine patches, gum, and sprays. The [place] [employer]'s web site -- www.cancer.org -- is an excellent resource for smokers who are trying to quit, and the [employer] [place] [employer] can help some smokers kick the habit. Above all, don't get discouraged if you aren't able to quit smoking the first time. Nicotine addiction is a hard habit to break. Try something different next time. Develop new strategies, and try again. Many people take several attempts to finally kick the habit. Code(s): F17.200 - Nicotine dependence, unspecified, uncomplicated Category: Social Hx Plan . Medications: New nifedipine ER 60 mg PO DAILY 90 tabs 0RF multivitamin 1 tab PO DAILY 90 tabs 2RF nicotine (polacrilex) (Nicorette) 2 mg buccal Q2H PRN 100 ea 2RF nicotine cravings
[2025-06-09 11:27] VITALS: BP 140/76; PULSE 50; RESP 13; TEMP 36.4; O2SAT 99; BMI 30.1
[2025-06-09 11:53] VITALS: BP 146/76
== END 2025-06-09 11:58 | disposition home or self-care (01) ==
LOC: HO.HMCFM 11:22
PROVIDERS: PCP Nurse Practitioner Family; Visit Provider Nurse Practitioner Family
DX: I10 Essential (primary) hypertension (principal); E55.9 Vitamin D deficiency, unspecified; Z97.5 Presence of (intrauterine) contraceptive device; F17.200 Nicotine dependence, unspecified, uncomplicated

== ENCOUNTER → 2025-06-09 11:21 | Outpatient (BNVA) | payer OTHER, SELFPAY | PROVIDERS: PCP Nurse Practitioner Family; Visit Provider Nurse Practitioner Family | DX: I10 Essential (primary) hypertension (principal); E55.9 Vitamin D deficiency, unspecified; F17.210 Nicotine dependence, cigarettes, uncomplicated; T83.84XA Pain due to genitourinary prosthetic devices, implants and grafts, initial encounter | CPT/HCPCS: 99212 ==

== ENCOUNTER 2025-07-07 12:35 | Outpatient (AMB) | payer OTHER, SELFPAY ==
--- NOTE | 2025-07-07 12:37 | MHC.PC.OV ---
Vital Signs 07/07/25 12:40 07/07/25 13:11 Height 5 ft 9.5 in Weight 209 lb BMI 30.4 BP 142/80 H 124/76 Blood Pressure Location Lt brachial Lt brachial Position Sitting Sitting Respiration 12 Pulse 62 Pulse Source Pulse Oximeter Temp 97.4 F Temp Source Oral Pulse Oximetry (%) 99 Oxygen Delivery Method Room Air Intake Visit Reasons: 4 weeks fu HTN/smoking Intake Note: Follow up htn. Patient wants to discuss depression Associate Chemist Required: No Allergies No Known Allergies Allergy (Verified 07/07/25 13:09) Medication List - Last Reconciled 07/07/25 by Crystal Villalobos, [facility] blood pressure test kit-large As directed lisinopril 5 mg PO DAILY multivitamin 1 tab PO DAILY nicotine (polacrilex) (Nicorette) 2 mg buccal Q2H PRN nifedipine ER 60 mg PO DAILY polyethylene glycol 3350 17 grams PO DAILY Tobacco use date assessed: 07/07/25 Dental Screening Dental Screen Date: 07/07/25 Did you have a dental visit in the last 12 months?: Yes Did you have a dental problem in the last 6 months where you did not have access to dental care?: No Was dental information given to patient?: Patient has dentist HPI HPI Comments History of Present Illness Details 35 y/o F with HTN, obesity, hx of pre-eclampsia, current smoke, vit d def Social: Dtr 5 months old (2024) Surgery: none Fhx: Dad age 50 drug OD; Mom alive HTN sober from etoh/benzo; 2 brother and 2 sisters alive and well. Denies cancer. Some dm in distant relatives. Health Maintenance Tdap 2024 Flu declined 05.08.25 Pap reports 2024 UTD, managed by [employer]. Specialist: [employer] [facility] [place] [facility], exam 04/2025 WNL History of Present Illness The patient is a 35 year old female presenting for follow-up of hypertension. Hypertension: - The patient started lisinopril 5 mg since her last visit and is also taking nifedipine 60 mg for hypertension. - She reports no side effects from lisinopril, though she initially had difficulty distinguishing a potential medication-induced cough from her usual smoker's cough. - She has checked her blood pressure at home once and found it to be a little elevated, but has not monitored it regularly. - She denies any chest pain or shortness of breath. depression: - The patient has depression that has worsened over the last two months. - She denies any suicidal or homicidal ideation. Past Medical History - Hypertension - depression - History of smoking, indicated by report of a smoker's cough. Review of Systems - Cardiovascular: Denies chest pain. - Respiratory: Denies shortness of breath. Reports an intermittent smoker's cough. - Psychiatric: Per dictation, denies suicidal or homicidal ideation. - Gastrointestinal: Per dictation, denies GI symptoms. Physical Exam General: Well developed, well nourished, in no acute distress. Appears stated age. Head: Normocephalic, atraumatic. Eyes: Pupils are equal, round and reactive to light and accommodation. Conjunctivae are clear. Lungs: Clear to auscultation bilaterally. No rales, rhonchi or wheeze noted. Good air flow in all garcia. Heart: Regular rate and rhythm. No murmurs, click, rubs or gallops are noted. Psych: Mood and affect appropriate. Patient planning a depression worse over the last two months denies any SI or GI. Tearful but appropriate, bonding w/ dtr who is present Medical Decision Making The patient is a 35-year-old female here for a follow-up of her hypertension. She recently started lisinopril 5 mg and is also on nifedipine 60 mg. Her initial blood pressure was elevated at 142/80 mmHg, but a repeat measurement was significantly better at 124/76 mmHg. The management goal is to transition her off nifedipine and maintain control with an ARELI inhibitor. To avoid rebound hypertension, a gradual four-week taper of nifedipine 60 mg will be implemented, starting with [id number] dosing and progressively reducing frequency each week. Concurrently, her lisinopril dose will be increased from 5 mg to 10 mg daily to ensure a seamless transition and sustained blood pressure control. Separately, the patient has been experiencing worsening depression over the last two months. She denies suicidal or homicidal ideation. The plan is to initiate sertraline 50 mg daily to stabilize her mood, provide crisis information, and refer her to counseling. Follow-up will be in approximately six weeks to assess her blood pressure response once she is completely off nifedipine and stable on lisinopril 10 mg. Plan 1. Hypertension - The lisinopril dose will be increased from 5 mg to 10 mg daily. - A new prescription for lisinopril 10 mg will be sent to [facility]. - The nifedipine 60 mg will be tapered off over four weeks to prevent rebound hypertension. - The tapering schedule is: take the medication 4 times in week one, 3 times in week two, 2 times in week three, once in week four, and then discontinue. - The patient will follow up in approximately six weeks to re-evaluate her blood pressure after she is completely off nifedipine. 2. Depression - Sertraline 50 mg will be initiated, with instructions to take one tablet daily. - Crisis information will be provided at discharge. - A referral to counseling will be made. Patient Instructions - You will slowly stop taking your nifedipine 60 mg medicine over the next four weeks. Take it 4 times in the first week, 3 times in the second week, 2 times in the third week, and 1 time in the fourth week, then stop completely. - You will increase your lisinopril dose to 10 mg once a day. A new prescription will be sent to your [facility] pharmacy. - You can start taking two of your current 5 mg lisinopril pills to make the 10 mg dose until you product picker your new prescription. - We will start you on sertraline 50 mg once daily to help with your mood. - Please schedule a follow-up appointment in about six weeks to check your blood pressure. Consent The plan to adjust hypertension medications was discussed with the patient. This includes tapering off nifedipine and increasing lisinopril. The rationale and risks, including the risk of rebound hypertension if nifedipine is stopped abruptly, were explained. The patient agreed with the proposed plan. Patient was informed and verbally consented to the use of an ambient scribe for clinic note documentation during this visit. Total time spent caring for the patient today was 30 minutes. This includes time spent before the visit reviewing the chart, time spent during the visit, and time spent after the visit on documentation, reviewing laboratory results, diagnostic imaging, medications, performing a medically necessary evaluation, counseling on diagnoses, care coordination, ordering appropriate tests, ordering appropriate medications, review of tests performed by other providers, reporting test results with the patient, communication with other healthcare providers. [facility] Medical History (Updated 07/07/25 @ 13:18 by Crystal Villalobos, [facility]) High blood pressure Family History (Updated 05/08/25 @ 10:06 by OMEGA Kim) Mother Alcohol abuse FH: mental illness High blood pressure Maternal Uncle Alcohol abuse Substance abuse Family/Other No problems noted. 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 Current occupational exposures/hazards: No Cognitive needs: No Hearing needs: No Vision needs: No Questionnaire Thrive Questionnaire Date Thrive assessed: 05/05/25 I am a: Patient What is your living situation today?: I have a steady place to live Within the past 12 months, did the food you bought not last and you didn't have the money to get more?: Never true Within the past 12 months, did you worry whether your food would run out before you got money to buy more?: Never true Do you have trouble paying for medicines?: No Do you have trouble getting transportation to medical appointments?: No Do you have trouble paying your heating and electricity bill?: No Do you have trouble taking care of your child, family member or friend?: No Do you have trouble with day-to-day activities such as bathing, preparing meals, shopping, managing finances, etc.?: No Are you currently unemployed and looking for a job?: No Are you interested in more education?: No Currently or been in a relationship where the following occur: No concerns reported THRIVE Score: 0 RASHAWN-7 AMB Questionnaire RASHAWN-7 Date RASHAWN - 7 assessed: 05/08/25 Source: Developed by Drs. Vipul Ferrer, Marion Maurice, Cr Salazar and colleagues, with an educational lyndon from [employer]. Physical exam (Primary Care) Vital Signs: Last Vital Signs Temp 97.4 F 07/07/25 12:40 Pulse 62 07/07/25 12:40 Resp 12 07/07/25 12:40 BP 142/80 H 07/07/25 12:40 Pulse Ox 99 07/07/25 12:40 Oxygen Delivery Method Room Air 07/07/25 12:40 BMI result Body Mass Index 30.4 Tobacco/Smoking Status: Tobacco use Status Tobacco use date assessed 07/07/25 07/07/25 12:39 Patient Tobacco Use Status Current everyday Tobacco 07/07/25 12:39 e-Cigarette/Vaping Use Never Used 07/07/25 12:39 Thrive Assessment: Date of Thrive Assessment Date Thrive assessed 05/05/25 07/07/25 12:39 Currently or been in a relationship where the following occur: No concerns reported Coding Level of Care Code Est Pt Level 4 (58650) Add On Problem Visit Only Diagnoses depression F53.0 Primary hypertension I10 Hypertension type: primary hypertension Assessment & Plan Assessment & Plan (1) depression: Code(s): F53.0 - depression Category: Medical (2) High blood pressure: Code(s): I10 - Essential (primary) hypertension Category: Medical Qualifiers: Hypertension type: primary hypertension Qualified Code(s): I10 - Essential (primary) hypertension Plan . Orders: Referrals Nurse Navigator Referral F53.0 - depression Medications: New lisinopril 10 mg PO DAILY 90 tabs 0RF sertraline 50 mg PO DAILY 30 tabs 1RF Discontinued lisinopril Discontinued Reason: Doctor's Order 5 mg PO DAILY 90 tabs 0RF Patient Instructions: National Suicide and Crisis Lifeline: Available 24 hours a day, 7 days a week, 365 days a year Dial 988 with any telephone to speak to someone immediately [facility] [address] [place] [id number] , Walk ins [facility] (Mental / Behavioral health therapist: [address] [place] [address] [facility]: [address] [place] [address] Open from 10am - 12pm (walk ins [place]) [facility] Crisis Services: [address] [place] [address] Walk in hours from 10am - 12pm Behavioral health Network: [address] [place] [id number] [place] [address] Monday through Monday 8am - 8pm Monday and Monday 9am - 5pm Crisis Hotlines Suicide prevention, domestic violence, and other crisis hotlines for youth, young adults, and their friends and families. [facility] Safeline helps youth who have run away, are thinking about running away, or who already ran away but are ready to come home. Parents and guardians can also contact the hotline if they are worried about their child running away or if their child has already left home. The hotline is available 24 hours a day, seven days a week. Youth, parents, and guardians can also use the online chat feature on the [facility]'s website to ask for help and get support, or can send a text to [facility]. [facility] National Suicide Prevention Lifeline: The [place] Suicide Prevention Lifeline is a network of local crisis centers that are available 06/02 to provide support for youth and adults who are in any kind of emotional crisis. In addition to the main hotline number listed above, there are several other numbers to call depending on your needs: Green[place]ic Language: Deaf and Hard of [phone] Veterans: Disaster Distress: Anyone can also use their online chat feature on their website. [place] Suicide Prevention Lifeline [facility] Helpline: The [facility] Helpline is available to anyone in [place] who is need of emotional support. Anyone can call or text the helpline to receive help from specially trained volunteers. [place] high school and college students can also get online support through the [employer]_ program. For high school students, volunteers ages 15-18 are available Monday- from 6-9PM. For college students, [employer]_ is available Monday-Monday from 5-9PM. The Cr Project - The Cr Project is a 24/ crisis intervention and suicide prevention hotline for LGBTQ youth. Youth can also text Cr to for support, or use the online chat feature on the Cr Project's website. [employer] is available Monday-Monday between 3-10PM. [employer] is available seven days a week between 3-10PM. SafeLink: SafeLink is for anyone who is being affected by domestic violence or dating violence. Volunteers at [employer] speak Vincentian and Greenlandic, and [employer] also has a service that can provide translation in more than 130 languages. TTY:
[2025-07-07 12:40] VITALS: BP 142/80; PULSE 62; RESP 12; TEMP 36.3; O2SAT 99; BMI 30.4
[2025-07-07 13:11] VITALS: BP 124/76
== END 2025-07-07 13:24 | disposition home or self-care (01) ==
LOC: HO.HMCFM 12:36
PROVIDERS: PCP Nurse Practitioner Family; Visit Provider Nurse Practitioner Family
DX: F53.0 Postpartum depression (principal); I10 Essential (primary) hypertension

== ENCOUNTER → 2025-07-07 12:35 | Outpatient (BNVA) | payer OTHER, SELFPAY | PROVIDERS: PCP Nurse Practitioner Family; Visit Provider Nurse Practitioner Family | DX: F53.0 Postpartum depression (principal); I10 Essential (primary) hypertension | CPT/HCPCS: 99212 ==